=== PATIENT | male | born 1960 | race Caucasian/White ===

== ENCOUNTER → 2019-08-01 | Outpatient (CLI) | payer BC ==
[2019-08-01 11:38] LABS: HCT 47.2 % (39.0-53.0); HGB 16.2 gm/dL (13.0-17.5); MCH 31.7 pg (25.0-35.0); MCHC 34.3 g/dL (31.0-37.0); MCV 92.5 fL (80.0-100.0); Mean Platelet Volume 7.8; Platelet Count 237 k/uL (150-450); RDW 12.1 % (11.5-15.5)
[2019-08-01 16:06] LABS: African American GFR (CKD) 84.7 (60.0-200.0); Albumin 4.7 g/dL (3.80-4.90); Albumin/Globulin Ratio 2.61 (1.60-3.17); Anion Gap 1.7 mmol/L (4.00-12.00); BUN/Creat Ratio 16.36 Ratio (12.00-20.00); Calcium 9.6 mg/dL (8.7-10.3); Carbon Dioxide 27.3 mmol/L (21.6-31.8); Chol/HDL Ratio 5.15; Globulin 1.8 g/dL (1.6-3.3); LDL Cholesterol,Calculated 130.8 mg/dL (0.0-131.0); Non-African American GFR(CKD) 73.1 (60.0-200.0); Potassium 5.2 mmol/L (3.5-5.5); Total Bilirubin 0.5 mg/dL (0.2-1.2); Total Protein 6.5 g/dL (6.2-8.2); VLDL Calculation 31.2 mg/dL (5.00-40.00)
[2019-08-01 16:14] LABS: T4, Free (Free Thyroxine) 1.2 ng/dL (0.80-1.80)
[2019-08-01 17:31] LABS: Hemoglobin A1C 5.7 % (4.0-6.0)
== END | disposition home or self-care (01) ==
LOC: LABWHC1 10:35
PROVIDERS: ATTEND Family Medicine
DX: N40.0 Benign prostatic hyperplasia without lower urinary tract symptoms (principal); R53.83 Other fatigue; B19.20 Unspecified viral hepatitis C without hepatic coma
CPT/HCPCS: 36415; 80053; 80061; 83036; 84153; 84439; 84443; 85027

== ENCOUNTER 2022-07-07 11:59 | Day surgery (SDC) | payer BC ==
[2022-06-26 11:01] VITALS: BMI 29.9
[~2022-07-07 11:59] MED LIST: SODIUM CHLORIDE 0.9% 1,000 ML IV SCH
[2022-07-07] MEDS ORDERED: SODIUM CHLORIDE 0.9% 500 ML 500 ML IV ONE (12:12)
[2022-07-07 12:44] VITALS: RESP 16; TEMP 98.4
[2022-07-07] MEDS ORDERED: SODIUM CHLORIDE 0.9% 1,000 ML IV SCH ×2 (12:45)
[2022-07-07] MEDS ORDERED: LIDOCAINE 1% INJ 10MG/ML (30 ML VIAL-PF) SQ ONE (13:16)
[2022-07-07] MEDS ORDERED: fentaNYL (PF) 50 MCG/ML 2 ML AMP IV ONE (13:16)
[2022-07-07] MEDS ORDERED: MIDAZOLAM 2 MG/2 ML VIAL IV ONE (13:18)
--- NOTE | 2022-07-07 14:02 | P.EPPROC ---
- EP Procedure Note Electrophysiology Procedure Note: Procedure: Loop explant under sedation and local anesthesia. Diagnosis: Loop monitor at [facility], initially implanted for CVA almost 4 years back Patient was brought to the EP lab in a fasting state. Written informed consent was obtained prior to the procedure. The subcutaneous device was successfully explanted under local anesthesia. Preoperative antibiotics were administered. The wound was closed in layers and dressed per protocol. Result: Successful loop monitor explantation. Patient underwent EP procedure under conscious sedation/moderate sedation, monitoring of the level of consciousness and physiologic parameters including but not limited to vital signs and oxygenation. Patient tolerated the procedure well without any acute complications. Start time: 1314 Stop time: 1324
[2022-07-07 15:52] VITALS: BP 129/61; PULSE 54
== END 2022-07-07 14:34 | disposition home or self-care (01) ==
LOC: CATHEP 11:59
PROVIDERS: ATTEND Internal Medicine Clinical Cardiac Electrophysiology
DX: T82.111A Breakdown (mechanical) of cardiac pulse generator (battery), initial encounter (principal); I10 Essential (primary) hypertension; E78.5 Hyperlipidemia, unspecified; F17.210 Nicotine dependence, cigarettes, uncomplicated; I44.4 Left anterior fascicular block
CPT/HCPCS: 33286; J2250; J0690; J2001; J3010